=== PATIENT | female | born 1965 | race Caucasian/White ===

== ENCOUNTER 2019-07-23 09:25 | Inpatient (IN) | payer MEDICAID ==
[~2019-07-23] VITALS: Ht 154.9 cm; Wt 71.4 kg
[2019-07-23 09:28] VITALS: Ht 154.9 cm; Wt 71.4 kg
--- NOTE | 2019-07-23 09:36 | NUR ---
PT C/O HAVING GENERALIZED ABDOMINAL PAIN FOR TWO DAYS. PER PT VOMTIED 2X LAST NIGHT AND UNABLE TO KEEP ANY FOOD OR WATER DOWN. +BOWEL SOUNDS ALL FOUR QUAD. PT STS SHE HAS SOME NAUSEA AND HAS NOT VOMITED TODAY. PER PT DENIES ANY ANURIA OR DIARRHEA. NO ABDOMINAL DISTENTION NOTED. PT DENIES ANY BODY ACHES, +CHILLS, NO TEMP NOTED. PER PT HAS A "PRESSURE" ABDOMINAL PAIN THAT "SHOOTS UP". PT DENIES ANY DIZZINESS. PT IS ALERT AND ORIENTED, SPEAKING IN CLEAR AND FULL SENTENCES. VSS. RESP E/U. WILL CONTINUE TO MONITOR.
[2019-07-23 10:55] LABS: UA SPECIFIC GRAVITY >=1.030 (1.005-1.035); microscopic required? YES; urine erythrocyte 1+ (NEGATIVE)
[2019-07-23 11:29] LABS: CALCIUM 9.1 mg/dL (8.5-10.1); CARBON DIOXIDE 21.5 mmol/L (21-32); CHLORIDE SERUM 98 mmol/L (98-107); CREATININE SERUM 0.8 mg/dL (0.6-1.0); GFR1 > 60 mL/min; GLUCOSE SERUM 309 mg/dL (74-106); POTASSIUM SERUM 4.1 mmol/L (3.5-5.1); SODIUM SERUM 138 mmol/L (136-145)
[2019-07-23 11:32] LABS: ALBUMIN 3.6 g/dL (3.4-5.0); ALKALINE PHOSPHATASE 110 U/L (46-116); ALT/SGPT 28 U/L (14-59); AST/SGOT 11 U/L (15-37); BILIRUBIN TOTAL 0.7 mg/dL (0.20-1.00); LIPASE 755 IU/L (73-393); PLATELET COUNT 169 x10^3mcL (130-400)
[2019-07-23 11:33] LABS: ATYPICAL LYMPH 0 %; BAND NEUTROPHIL 0 % (0-10); MONOCYTE 5 % (0-7); SEGMENTED NEUTROPHILS 18 % (37-75); rbc morphology (normal/abnorm) NORMAL (NORMAL)
[2019-07-23 11:34] LABS: PLATELET MORPHOLOGY PLATELETS NORMAL
--- NOTE | 2019-07-23 11:42 | NUR ---
PT IN POSITION OF COMFORT. PT STS " I AM FEELING BETTER". VSS. NO DSITRESS NOTED. WILL CONTINUE TO MONITOR.
--- NOTE | 2019-07-23 12:37 | NUR ---
PT TAKEN TO CT.
[2019-07-23] MEDS ORDERED: GLU850 PO (13:17)
[2019-07-23] MEDS ORDERED: PRAVASTATIN SOD10 M1 PO (13:18)
--- NOTE | 2019-07-23 13:24 | NUR ---
PER PT "I DO NOT WANT TO STAY IN THE HOSPITAL". DR. VALDOVINOS MADE AWARE.
--- NOTE | 2019-07-23 14:56 | NUR ---
REPORT GIVEN TO CHARLES LOPEZ TO ASSUME CARE OF PT.
--- NOTE | 2019-07-23 15:15 | NUR ---
RECEIVED PT FROM ED [facility]IA [facility], CAME IN DUE TO ABDOMINAL PAIN AND VOMITING. AAOX4. C/O 4/10 HEADACHE. DENIES DIZZINESS. NO SOB NOTED, LUNG SOUNDS CTA. DENIES CHEST PAIN/PRESSURE. STATED THAT SHE HAS 4/10 MID UPPER ABDOMINAL PAIN DESCRIBED DULL. DENIES NAUSEA/VOMITING AT THIS TIME. BOWEL SOUNDS ACTIVE. HAD BM YESTERDAY, FORMED. STATED THAT SHE HAS MILD BURNING SENSATION ON URINATION. IV SITE ON THE RAC IS PATENT AND INTACT. SIDE RAILS UPX2. CALL LIGHT ON REACH. PRIMARY NURSE NILA AT BEDSIDE FOR CONTINUITY OF CARE
[2019-07-23 15:26] VITALS: BP 115/76
--- NOTE | 2019-07-23 18:26 | NUR ---
PT RESTING IN BED. NO ACUTE DISTRESS. AAOX4. VERBALIZED ADEQUATE RELIEF FROM TORADOL. C/O MILD EPIGASTRIC PAIN BUT TOLERABLE. DENIES N/V. IVF INFUSING, NO REDNESS OR SWELLING NOTED. FAMILY AT BEDSIDE. BED IN LOW POSITION, CALL LIGHT WITHIN REACH. WILL ENDORSE TO ONCOMING SHIFT.
--- NOTE | 2019-07-23 19:15 | NUR ---
CARE ASSUMED FROM OUTGOING RN. PT RESTING COMFORTABLY IN BED. FAMILY AT BEDSIDE. NO ACUTE DISTRESS NOTED. EVEN AND UNLABORED RESPIRATIONS ON RA. MEDSURG PT. IV PATENT AND INTACT RUNNING FLUIDS PER EMAR. HEADACHE RESOLVING FROM MEDICATIONS GIVEN BY DAY SHIFT RN. BED IN LOWEST POSITION. SIDE RAILS UPX2. CALL LIGHT WITHIN REACH. WILL CONTINUE TO MONITOR.
[2019-07-23 20:56] VITALS: BP 107/52
--- NOTE | 2019-07-23 23:58 | NUR ---
PT RESTING COMFORTABLY IN BED. C/O ABD PAIN MEDICATED PER EMAR. IV PATENT AND INTACT RUNNING FLUIDS PER EMAR. BED IN LOWEST POSITION. SIDE RAILS UPX2. CALL LIGHT WITHIN REACH. WILL REASSESS FOR PAIN AND CONTINUE TO MONITOR.
[2019-07-24 05:11] VITALS: BP 102/59
--- NOTE | 2019-07-24 06:48 | NUR ---
PT SLEPT COMFORTABLY IN INTERVALS THROUGHOUT THE SHIFT. ALL NEEDS TENDED TO AND MET. ALL SCHEDULED MEDICATIONS GIVEN. C/O HEADACHE AND ABD PAIN MEDICATED PER EMAR. IV PATENT AND INTACT RUNNING FLUIDS PER EMAR. BLOOD SUGAR CHECKED, 187 AND 217, COVERED PER SLIDING SCALE. BED IN LOWEST POSITION. SIDE RAILS UPX2. CALL LIGHT WITHIN REACH. WILL ENDORSE TO ONCOMING SHIFT.
[2019-07-24 06:55] LABS: BASOPHIL % 0.3 % (0-2); PLATELET COUNT 138 x10^3mcL (130-400); RED CELL DISTRIBUTION WIDTH 13.8 % (11.5-14.5)
[2019-07-24 07:06] LABS: CARBON DIOXIDE 18.8 mmol/L (21-32); CHLORIDE SERUM 102 mmol/L (98-107); CREATININE SERUM 0.7 mg/dL (0.6-1.0); GFR1 > 60 mL/min; GLUCOSE SERUM 235 mg/dL (74-106); POTASSIUM SERUM 4.1 mmol/L (3.5-5.1); SODIUM SERUM 136 mmol/L (136-145)
--- NOTE | 2019-07-24 07:34 | NUR ---
RECEIVED PT RESTING IN BED. NO ACUTE DISTRESS. AAOX4. RESP EVEN AND UNLABORED ON RA. C/O R SIDE ABD PAIN BUT TOLERABLE AT THIS TIME. IVF INFUSING, NO REDNESS OR SWELLING TO IV SITE. HOB ELEVATED. BED IN LOW POSITION, CALL LIGHT WITHIN REACH. WILL CONTINUE TO MONITOR.
[2019-07-24 08:50] VITALS: BP 100/65
--- NOTE | 2019-07-24 12:36 | NUR ---
PT SITTING UP ON THE SIDE OF THE BED EATING LUNCH. STATED ABD PAIN IS TOLERABLE, INCREASES ONLY WHEN AMBULATING. RESP EVEN AND UNLABORED ON RA. IVF INFUSING, NO REDNESS OR SWELLING TO IV SITE. CALL LIGHT WITHIN REACH. WILL CONTINUE TO MONITOR.
[2019-07-24 16:13] VITALS: BP 114/68
--- NOTE | 2019-07-24 18:26 | NUR ---
PT RESTING IN BED WATCHING TV. NO ACUTE DISTRESS. AAOX4. DENIES HOUSE. RESP EVEN AND UNLABORED ON RA. IVF INFUSING, NO REDNESS OR SWELLING TO IV SITE. REPORTED ADEQUATE RELIEF FROM [place]. TOLERATED CLEAR LIQUID DIET. HOB ELEVATED. BED IN LOW POSITION, CALL LIGHT WITHIN REACH. WILL ENDORSE TO ONCOMING SHIFT.
--- NOTE | 2019-07-24 19:10 | NUR ---
CARE ASSUMED FROM OUTGOING RN. PT RESTING COMFORTABLY IN BED. FAMILY AT BEDSIDE. NO ACUTE DISTRESS NOTED. EVEN AND UNLABORED RESPIRATIONS ON RA. MEDSURG PT. IV PATENT AND INTACT RUNNING FLUIDS PER EMAR. ABD PAIN TOLERABLE AT THIS TIME, WILL MEDICATE FOR PAIN PRN. BED IN LOWEST POSITION. SIDE RAILS UPX2. CALL LIGHT WITHIN REACH. WILL CONTINUE TO MONITOR.
[2019-07-24 19:40] VITALS: BP 112/59
--- NOTE | 2019-07-25 00:27 | NUR ---
PT ASLEEP COMFORTABLY IN BED. NO ACUTE DISTRESS NOTED. EVEN AND UNLABORED RESPIRATIONS ON RA. IV PATENT AND INTACT WITH FLUIDS INFUSING PER EMAR. BED IN LOWEST POSITION. SIDE RAILS UPX2. CALL LIGHT WITHIN REACH. WILL CONTINUE TO MONITOR.
[2019-07-25 04:25] VITALS: BP 108/59
--- NOTE | 2019-07-25 06:58 | NUR ---
PT SLEPT COMFORTABLY IN INTERVALS THROUGHOUT THE SHIFT. NO ACUTE CHANGES NOTED. ALL NEEDS TENDED TO AND MET. ALL SCHEDULED MEDICATIONS GIVEN. C/O ABD PAIN MEDICATED PER EMAR. BLOOD SUGARS, 220 AND 169, COVERED PER SLIDING SCALE. BED IN LOWEST POSITION. SIDE RAILS UPX2. CALL LIGHT WITHIN REACH. WILL ENDORSE TO ONCOMING SHIFT.
--- NOTE | 2019-07-25 07:19 | NUR ---
RECIEVED PT FROM [employer] FINAL NURSE. PT IN BED SLEEPING, AROUSABLE, RESP E/U ON RA. NO SIGNS OF ACUTE DISTRESS NOTED. IV TO RAC W/ NO SIGNS OF INFILTRATION, IVF INFUSING WELL. BED IN LOWEST POSITION AND CALL LIGHT WITHIN REACH. WILL CONTINUE TO MONITOR.
[2019-07-25 09:19] VITALS: BP 118/71
--- NOTE | 2019-07-25 11:58 | NUR ---
PT RESTING IN BED, AOX4, RESP E/U ON RA. REPORTED MILD PAIN TO ABD 5/10 BUT TOLERABLE, NO REQUEST FOR PAIN MEDS AT THIS TIME, DENIES N/V. COMFOR TMEASURES IMPLEMENTED. BED IN LOWEST POSITION AND CALL LIGHT WITHIN REACH. WILL CONTINUE TO MONITOR.
[2019-07-25 12:16] VITALS: BP 118/71
[2019-07-25 17:05] VITALS: BP 117/75; BP 118/62
--- NOTE | 2019-07-25 17:30 | NUR ---
PT IN BED HAVING DINNER, AOX4, RESP E/U ON RA. DENIES ABD PAIN OR N/V AT THIS TIME. WILL FOLLOW UP AFTER DINNER TO ASSESS TOLERANCE TO REGULAR DIET. IV TO RAC W/ NO SIGNS OF INFILTRATION, IVF INFUSING WELL. BED IN LOWEST POSITION AND CALL LIGHT WITHIN REACH.
--- NOTE | 2019-07-25 18:44 | NUR ---
PT DISCHARGED. REVIEWED VISIT SUMMARY, EDUCATIONAL PACKET AND FOLLOW UP INSTRUCTIONS W/ PT. PT AOX4, RESP E/U, VS STABLE, DENIES PAIN AT THIS TIME. IV TO RAC REMOVED, CATH INTACT, GAUZE DRESSING APPLIED. PT AMBULATORY TO [facility], ESCORTED BY JOHN HOLT W/ NO ACUTE INCIDENCE.
== END 2019-07-25 18:45 | disposition home or self-care (01) | DRG 282 ==
LOC: ED 09:25 → MU 14:16
PROVIDERS: Emergency Medicine; ADMIT General Practice
DX: K85.90 Acute pancreatitis without necrosis or infection, unspecified (principal); Z68.30 Body mass index [BMI] 30.0-30.9, adult; Z79.84 Long term (current) use of oral hypoglycemic drugs
CPT/HCPCS: 82962; C9113; G0378; J1815; J1885; J1956; J2405; J7030